=== PATIENT | female | born 1955 | race Caucasian/White ===

== ENCOUNTER → 2018-02-18 | Outpatient (CLI) | payer BC, OTHER ==
[~2018-02-18] MED LIST: CALC-734 PO; LEVO112T44 PO; MAGN100T PO; RIZA10TA24 PO; VERA180T53 PO
--- NOTE | 2018-02-19 09:04 | RADIOLOGY IMAGING REPORT ---
FACILITY: [facility] PATIENT NAME: SANDRA PINZON : [id number] MR: [id number] V: [id number] EXAM DATE: ORDERING PHYSICIAN: CLARI WRIGHT TECHNOLOGIST: Lyssa Alanis PROCEDURE:BILATERAL DIGITAL SCREENING MAMMOGRAM WITH CAD ASSISTED INTERPRETATION & 3D TOMOSYNTHESIS COMPARISON:Prior mammograms 02/16/17, 03/03/15, 01/20/14, 01/07/13, 12/28/11. INDICATIONS:screening FINDINGS: Small to moderate amount of fibroglandular tissue is seen throughout the breasts. The parenchymal pattern has remained stable allowing for difference in mammographic technique & patient positioning. There is no evidence of malignant appearing mass, malignant appearing calcifications or other secondary sign of malignancy in either breast. DIAGNOSTIC CATEGORY 1--NEGATIVE. RECOMMENDATIONS: ROUTINE MAMMOGRAM AND CLINICAL EVALUATION. IMPRESSION: BIRADS 1: Negative. No significant abnormality is seen. Dictated by: Savannah Manley M.D. on 02/18/2018 at 16:33 Transcribed by: OTTONIEL on 02/19/2018 at 8:01 Approved by: Savannah Manley M.D. on 02/19/2018 at 9:03 [facility]
== END ==
LOC: MAMO 04:16
PROVIDERS: ATTEND Nurse Practitioner Family
DX: Z12.31 Encounter for screening mammogram for malignant neoplasm of breast (principal)
CPT/HCPCS: 77063; 77067